=== PATIENT | female | born 2000 | race Caucasian/White ===

== ENCOUNTER 2023-04-29 04:00 | Emergency (ER) | payer SELFPAY ==
[2023-04-29] MEDS ORDERED: Albuterol/Ipratropium 3.0-0.5 MG/3 ML Neb Soln NEB STA ×2 (04:06→04:12)
[2023-04-29] MEDS ORDERED: predniSONE 20 MG Tab PO STA (04:25)
== END 2023-04-29 04:35 | disposition home or self-care (01) ==
LOC: MW.ED 04:00
DX: J45.901 Unspecified asthma with (acute) exacerbation (principal); Z88.0 Allergy status to penicillin
CPT/HCPCS: 99283; A9270; J7620-GY

== ENCOUNTER 2023-05-26 04:07 | Emergency (ER) | payer SELFPAY ==
[2023-05-26] MEDS ORDERED: Ibuprofen 400 MG Tab PO ONE (04:24)
[2023-05-26] MEDS ORDERED: Clindamycin HCl 150 MG Cap PO ONE (04:24)
[2023-05-26] MEDS ORDERED: Acetaminophen 325 MG Tab PO ONE (04:24)
[2023-05-26] MEDS ORDERED: Lidocaine 2% Viscous Solution 15 ML UD PO ONE (04:24)
[2023-05-26] MEDS ORDERED: Benzocaine 20% Topical Spray UD MUCMEM ONE (04:27)
== END 2023-05-26 05:11 | disposition home or self-care (01) ==
LOC: MW.ED 04:07
DX: K08.89 Other specified disorders of teeth and supporting structures (principal); J45.909 Unspecified asthma, uncomplicated; Z88.0 Allergy status to penicillin
CPT/HCPCS: 99282; A9270; 99283

== ENCOUNTER 2023-07-01 04:33 | Emergency (ER) | payer MEDICAID ==
[2023-07-01] MEDS ORDERED: Albuterol/Ipratropium 3.0-0.5 MG/3 ML Neb Soln NEB ONE ×2 (04:40→04:58)
== END 2023-07-01 05:18 | disposition home or self-care (01) ==
LOC: MW.ED 04:33
DX: O99.511 Diseases of the respiratory system complicating pregnancy, first trimester (principal); J45.909 Unspecified asthma, uncomplicated; Z88.0 Allergy status to penicillin; Z3A.01 Less than 8 weeks gestation of pregnancy
CPT/HCPCS: 99283; 99284; J7620-GY

== ENCOUNTER 2023-07-08 03:46 | Emergency (ER) | payer MEDICAID ==
[2023-07-08] MEDS ORDERED: Albuterol/Ipratropium 3.0-0.5 MG/3 ML Neb Soln NEB ONE (04:10)
[2023-07-08] MEDS ORDERED: Budesonide 0.5 MG/2 ML Neb Susp NEB ONE (04:13)
[2023-07-08 04:55] LABS: CORONAVIRUS COVID-19 NAA NEGATIVE (NEGATIVE); INFLUENZA A NAA NEGATIVE (NEGATIVE); INFLUENZA B NAA NEGATIVE (NEGATIVE); RESPIRATORY SYNCYTIAL VIR NAA NEGATIVE (NEGATIVE)
== END 2023-07-08 05:22 | disposition home or self-care (01) ==
LOC: MW.ED 03:46
DX: J45.901 Unspecified asthma with (acute) exacerbation (principal); Z20.822 Contact with and (suspected) exposure to COVID-19; Z88.0 Allergy status to penicillin
CPT/HCPCS: 0241U; 71045; 99285; 99283; J3535-GY; J7620-GY

== ENCOUNTER 2023-08-26 04:08 | Emergency (ER) | payer MEDICAID | END 2023-08-26 04:30 | disposition home or self-care (01) | LOC: MW.ED 04:08 | DX: H66.93 Otitis media, unspecified, bilateral (principal); Z88.0 Allergy status to penicillin | CPT/HCPCS: 99282 ==

== ENCOUNTER 2023-09-14 12:51 | Emergency (ER) | payer MEDICAID ==
[2023-09-14] MEDS ORDERED: Sodium Chloride 0.9% 2.5 ML Syringe FLUSH PRN (14:03)
[2023-09-14] MEDS ORDERED: Sodium Chloride 0.9% 10 ML Syringe FLUSH PRN (14:03)
[2023-09-14 14:23] LABS: BASOPHILS ABSOLUTE AUTO 0.02 K/uL (0.00-0.20); BASOPHILS PERCENT AUTO 0.2 % (0.0-1.0); EOSINOPHILS ABSOLUTE AUTO 0.25 K/uL (0.00-0.45); EOSINOPHILS PERCENT AUTO 2.3 % (0.0-6.0); HEMATOCRIT 40.2 % (37.0-47.0); HEMOGLOBIN 13.6 g/dL (12.0-16.0); IMMATURE GRAN ABSOLUTE AUTO 0.07 K/uL (0.00-0.05); IMMATURE GRAN PERCENT AUTO 0.6 % (0.0-0.4); LYMPHOCYTES ABSOLUTE AUTO 2.25 K/uL (1.00-4.80); LYMPHOCYTES PERCENT AUTO 20.7 % (24.0-44.0); MEAN CORPUSCULAR HEMOGLOBIN 30.2 pg (28.0-32.0); MEAN CORPUSCULAR HGB CONC 33.8 g/dL (32.0-36.0); MEAN CORPUSCULAR VOLUME 89.3 fL (83.0-99.0); MEAN PLATELET VOLUME 10.2 fL (9.4-12.3); MONOCYTES ABSOLUTE AUTO 0.73 K/uL (0.00-0.80); MONOCYTES PERCENT AUTO 6.7 % (0.0-8.0); NEUTROPHILS ABSOLUTE AUTO 7.56 K/uL (1.80-7.70); NEUTROPHILS PERCENT AUTO 69.5 % (41.0-71.0); PLATELET COUNT,PLT 273 K/uL (150-400); WHITE BLOOD CELL COUNT,WBC 10.88 K/uL (3.9-11.3)
[2023-09-14 14:25] LABS: APPEARANCE,URINE CLEAR; BILIRUBIN,URINE NEGATIVE (NEGATIVE); GLUCOSE,URINE NEGATIVE (NEGATIVE); KETONES,URINE NEGATIVE (NEGATIVE); LEUKOCYTE ESTERASE,URINE NEGATIVE (NEGATIVE); NITRITE,URINE NEGATIVE (NEGATIVE); OCCULT BLOOD,URINE NEGATIVE (NEGATIVE); PROTEIN,URINE NEGATIVE (NEGATIVE); UROBILINOGEN,URINE 0.2 EU/dL (<2.0)
[2023-09-14 14:27] LABS: COLOR,URINE DARK YELLOW
[2023-09-14 14:45] LABS: A/G RATIO 0.7 (0.9-1.6); BILIRUBIN TOTAL 0.2 mg/dL (0.2-1.0); CALCIUM 9.1 mg/dL (8.5-10.1); CARBON DIOXIDE,CO2 24.8 mmol/L (21.0-32.0); CREATININE 0.7 mg/dL (0.6-1.0); EST CRCL DRUG DOSING (CG) 128.39 mL/min; POTASSIUM,K 3.8 mmol/L (3.5-5.1); PROTEIN TOTAL,TP 7.6 g/dL (6.4-8.2)
== END 2023-09-14 16:31 | disposition home or self-care (01) ==
LOC: MW.ED 12:51
DX: O20.9 Hemorrhage in early pregnancy, unspecified (principal); Z88.0 Allergy status to penicillin; Z3A.18 18 weeks gestation of pregnancy
CPT/HCPCS: 36415; 76801; 80053; 81003; 84702; 85025; 86900; 86901; 99284; J3490; 99283